=== PATIENT | female | born 1945 | race Caucasian/White ===

== ENCOUNTER 2016-05-22 17:19 | Inpatient (IN) | payer BC, OTHER ==
[~2016-05-22] VITALS: Ht 167.6 cm; Wt 101.6 kg
[~2016-05-22 17:19] MED LIST: ASPIR 8181 M1 PO; BUSPAR30 MG PO; DEXILANT60 MG PO; ENALAPRIL MALEA20 MG PO; GEMFIBROZIL600 MG PO; HUMALOG100 UNIT/2 SC; INVOKANA300 MG PO; JANUVIA100 MG PO; LEVEMIR FL100 UNIT/1 SC; NORCO 5/3251 TABLET PO; PRISTIQ50 MG PO; ZIAC 10/6.251 TABLET PO
[2016-05-22 21:19] LABS: HEMATOCRIT 41.7 % (36.0-46.0); MCH 26.2 PG (29.0-34.0); MCHC 32.9 G/DL (30.0-36.0); MCV 79.7 FL (83-99); MEAN PLAT.VOLUME 9.7 uM^3 (9.5-12.4); PLATELET COUNT 385 K/uL (156-360); RBC DIS.WIDTH-CV 13.2 % (11.8-14.6); RBC DIS.WIDTH-SD 37.2 % (39-53); RED BLOOD COUNT 5.23 M/uL (3.80-5.20); WHITE BLOOD COUNT 12.8 K/uL (4.1-10.2)
[2016-05-22 21:26] LABS: CHLORIDE 100 mEq/L (99-109); POTASSIUM 3.8 mEq/L (3.7-5.4); SODIUM 140 mEq/L (136-147)
[2016-05-22 21:28] LABS: GLUCOSE 202 mg/dL (70-99)
[2016-05-22 21:29] LABS: ANION GAP 13 MEQ/L (2-14)
[2016-05-22 21:31] LABS: GFR ESTIMATE (CALCULATED) > 59 mL/min/
[2016-05-22 21:32] LABS: UREA NITROGEN (BUN) 17 mg/dL (9-23)
[2016-05-22] MEDS ORDERED: GABAPENTIN600 MG PO ×2 (22:26→22:27)
[2016-05-22] MEDS ORDERED: ATARAX,VISTARIL25 MG PO (22:27)
[2016-05-22] MEDS ORDERED: VENLAFAXINE HCL75 M3 PO (22:29)
[2016-05-23 03:32] LABS: HDL CHOLESTEROL 33 MG/DL (Desirable>=50); LDL CHOLESTEROL 80 mg/dL (Desirable<100); NON-HDL CHOLESTEROL 150 mg/dL (Desirable<160); SAMPLE HEMOLYSIS CHECK 0; SAMPLE ICTERIC CHECK 0; SAMPLE LIPEMIA CHECK 0; TOTAL CHOLESTEROL 183 mg/dL (Desirable<200); TRIGLYCERIDES 352 MG/DL (Normal: <150)
[2016-05-23 06:47] LABS: Estimated Average Glucose 189 mg/dL (70-123); HEMOGLOBIN A1c (GLYCOHEMOGLOB) 8.2 % HGB (Below 5.7)
[2016-05-23 07:12] LABS: HEMATOCRIT 39.4 % (36.0-46.0); MCH 26.5 PG (29.0-34.0); MCHC 32.2 G/DL (30.0-36.0); MCV 82.1 FL (83-99); MEAN PLAT.VOLUME 10.3 uM^3 (9.5-12.4); PLATELET COUNT 312 K/uL (156-360); RBC DIS.WIDTH-CV 13.2 % (11.8-14.6); RBC DIS.WIDTH-SD 39.7 % (39-53)
[2016-05-23 07:21] LABS: ALKALINE PHOSPHATASE 92 IU/L (3-129); ANION GAP 10 MEQ/L (2-14); CHLORIDE 100 MEQ/L (99-109); GFR ESTIMATE (CALCULATED) > 59 mL/min/; GLUCOSE 187 mg/dL (70-99); POTASSIUM 3.5 MEQ/L (3.7-5.4); SAMPLE HEMOLYSIS CHECK 0; SAMPLE ICTERIC CHECK 0; SAMPLE LIPEMIA CHECK 0; SODIUM 139 MEQ/L (136-147); TOTAL BILIRUBIN 0.2 MG/DL (0.0-1.0); UREA NITROGEN (BUN) 17 mg/dL (9-23)
[2016-05-23 17:21] VITALS: BP 126/76
[2016-05-23 20:00] VITALS: BP 124/60
[2016-05-23 21:38] LABS: POINT-OF-CARE METER ID UU14188625; POINT-OF-CARE USER ID 603211116
[2016-05-24] VITALS (9 sets, daily range): BP systolic 126–151; BP diastolic 60–84
[2016-05-24 04:53] LABS: POINT-OF-CARE METER ID UU14174225
[2016-05-24 08:28] LABS: POINT-OF-CARE METER ID UU14188625
[2016-05-24 21:39] LABS: POINT-OF-CARE METER ID UU14188625
[2016-05-25 07:38] VITALS: BP 136/65
[2016-05-25 15:04] VITALS: BP 129/66
[2016-05-25 16:13] LABS: POINT-OF-CARE METER ID UU14174225
[2016-05-26 00:02] VITALS: BP 131/69
[2016-05-26 08:19] VITALS: BP 130/63
[2016-05-26] MEDS ORDERED: PLAVIX75 MG PO (11:56)
[2016-05-26] MEDS ORDERED: CLOPIDOGREL75 MG PO (11:56)
[2016-05-26] MEDS ORDERED: ATORVASTATIN CA80 MG PO (11:56)
== END 2016-05-26 14:25 | disposition home health service (06) | DRG 66 ==
LOC: EME 17:19 → EDOF 22:03 → 5SOUTH 22:03
PROVIDERS: Emergency Medicine; Hospitalist; Internal Medicine
DX: I63.9 Cerebral infarction, unspecified (principal); S02.2XXD Fracture of nasal bones, subsequent encounter for fracture with routine healing; W19.XXXD Unspecified fall, subsequent encounter; E87.6 Hypokalemia; I08.1 Rheumatic disorders of both mitral and tricuspid valves; I27.2 Other secondary pulmonary hypertension; E11.65 Type 2 diabetes mellitus with hyperglycemia; E78.5 Hyperlipidemia, unspecified; F32.9 Major depressive disorder, single episode, unspecified; F41.9 Anxiety disorder, unspecified; E66.01 Morbid (severe) obesity due to excess calories; I10 Essential (primary) hypertension; Z68.36 Body mass index [BMI] 36.0-36.9, adult; R53.1 Weakness; R47.81 Slurred speech; E78.00 Pure hypercholesterolemia, unspecified; K21.9 Gastro-esophageal reflux disease without esophagitis; R47.1 Dysarthria and anarthria; H53.2 Diplopia; R26.9 Unspecified abnormalities of gait and mobility
CPT/HCPCS: 70150; 70450; 70551; 73130; 80048; 80053; 80061; 82948; 83036; 85027; 92507 GN; 92523 GN; 92526 GN; 93005; 93306; 93880; 94799; 97532 GN; 99281; 99285; J1644; J2060; J7030; Q0177

== ENCOUNTER 2016-08-23 20:45 | Emergency (ER) | payer BC, OTHER ==
[~2016-08-23] VITALS: Ht 165.1 cm; Wt 103.6 kg
[~2016-08-23 20:45] MED LIST changes: +ATARAX,VISTARIL25 MG PO; +ATORVASTATIN CA80 MG PO; +CLOPIDOGREL75 MG PO; +GABAPENTIN600 MG PO; +PLAVIX75 MG PO; +VENLAFAXINE HCL75 M3 PO
[2016-08-23 23:32] VITALS: BP 117/62
== END 2016-08-23 23:38 | disposition home or self-care (01) ==
LOC: EME 20:45
DX: S09.90XA Unspecified injury of head, initial encounter (principal); I25.2 Old myocardial infarction; W08.XXXA Fall from other furniture, initial encounter; Z86.73 Personal history of transient ischemic attack (TIA), and cerebral infarction without residual deficits
CPT/HCPCS: 70450; 99281; 99283

== ENCOUNTER 2016-12-20 20:36 | Inpatient (IN) | payer OTHER ==
[~2016-12-20] VITALS: Ht 165.1 cm; Wt 102.7 kg
[2016-12-20 22:05] LABS: HEMATOCRIT 46.5 % (36.0-46.0); MCH 25.9 PG (29.0-34.0); MCHC 32.7 G/DL (30.0-36.0); MCV 79.4 FL (83-99); PLATELET COUNT 395 K/uL (156-360); RBC DIS.WIDTH-CV 12.4 % (11.8-14.6); RBC DIS.WIDTH-SD 35.3 % (39-53); RED BLOOD COUNT 5.86 M/uL (3.80-5.20); WHITE BLOOD COUNT 17.6 K/uL (4.1-10.2)
[2016-12-20 22:15] LABS: CHLORIDE 91 mEq/L (99-109); POTASSIUM 4.3 mEq/L (3.7-5.4); SODIUM 133 mEq/L (136-147)
[2016-12-20 22:18] LABS: ANION GAP 22 MEQ/L (2-14)
[2016-12-20 22:19] LABS: TOTAL BILIRUBIN 0.6 mg/dL (0.0-1.0)
[2016-12-20 22:21] LABS: ALKALINE PHOSPHATASE 107 IU/L (3-129); GFR ESTIMATE (CALCULATED) 52 mL/min/
[2016-12-20 22:22] LABS: UREA NITROGEN (BUN) 27 mg/dL (9-23)
[2016-12-20 22:41] LABS: GLUCOSE 519 mg/dL (70-99)
[2016-12-20 23:00] LABS: INTER. NORMALIZED RATIO 1.1; PROTHROMBIN TIME 11.6 SEC (10.2-12.9)
[2016-12-20 23:03] LABS: PTT 31.1 SEC (25-37)
[2016-12-20 23:15] LABS: CARBON DIOXIDE (BICARBONATE) 21.9 MEQ/L (20-31)
[2016-12-20 23:22] LABS: LIPASE 49 U/L (1.0-51.0)
[2016-12-21] VITALS (11 sets, daily range): BP systolic 131–185; BP diastolic 61–91
[2016-12-21 00:29] LABS: TROP-I INTERPRETATION NEGATIVE; TROPONIN-I 0.01 ng/mL (0.0-0.30)
[2016-12-21 02:52] LABS: POINT-OF-CARE METER ID UU13113702; POINT-OF-CARE USER ID 611181311
[2016-12-21 08:02] LABS: CHLORIDE 99 mEq/L (99-109); SODIUM 133 mEq/L (136-147)
[2016-12-21 08:04] LABS: GLUCOSE 324 mg/dL (70-99)
[2016-12-21 08:05] LABS: ANION GAP 19 MEQ/L (2-14)
[2016-12-21 08:07] LABS: GFR ESTIMATE (CALCULATED) > 59 mL/min/
[2016-12-21 08:08] LABS: UREA NITROGEN (BUN) 22 mg/dL (9-23)
[2016-12-21 08:13] LABS: POINT-OF-CARE METER ID UU13113702
[2016-12-21 10:16] LABS: POINT-OF-CARE METER ID UU13113702
[2016-12-21 11:06] LABS: Estimated Average Glucose 292 mg/dL (70-123)
[2016-12-21 11:14] LABS: POINT-OF-CARE METER ID UU13113702
[2016-12-21 11:15] LABS: HEMOGLOBIN A1c (GLYCOHEMOGLOB) 11.8 % HGB (Below 5.7)
[2016-12-21] MEDS ORDERED: LIPITOR80 MG PO (11:34)
[2016-12-21] MEDS ORDERED: VOLTAREN75 MG PO (11:35)
[2016-12-21] MEDS ORDERED: TRAMADOL HCL50 MG PO (11:37)
[2016-12-21] MEDS ORDERED: HYDROCODON-ACE1 EAC7 PO (11:37)
[2016-12-21] MEDS ORDERED: BUPROPION HCL200 M1 PO (11:38)
[2016-12-21] MEDS ORDERED: NORTRIPTYLINE H10 MG PO (11:39)
[2016-12-21] MEDS ORDERED: PREDNISONE20 MG PO (11:43)
[2016-12-21 12:28] LABS: POINT-OF-CARE METER ID UU13113702
[2016-12-21 12:57] LABS: POINT-OF-CARE METER ID UU13113748
[2016-12-21 13:25] LABS: POINT-OF-CARE METER ID UU13113748
[2016-12-21 13:48] LABS: ANION GAP 9 MEQ/L (2-14); CHLORIDE 97 MEQ/L (99-109); GFR ESTIMATE (CALCULATED) > 59 mL/min/; GLUCOSE 239 mg/dL (70-99); POTASSIUM 3.9 MEQ/L (3.7-5.4); SAMPLE HEMOLYSIS CHECK 0; SAMPLE ICTERIC CHECK 0; SAMPLE LIPEMIA CHECK 0; SODIUM 133 MEQ/L (136-147); UREA NITROGEN (BUN) 22 mg/dL (9-23)
[2016-12-21 14:19] LABS: POINT-OF-CARE METER ID UU13113748
[2016-12-21 15:11] LABS: POINT-OF-CARE METER ID UU13113748
[2016-12-21 16:13] LABS: ANION GAP 8 MEQ/L (2-14); CHLORIDE 98 MEQ/L (99-109); POTASSIUM 3.7 MEQ/L (3.7-5.4); SAMPLE HEMOLYSIS CHECK 0; SAMPLE ICTERIC CHECK 0; SAMPLE LIPEMIA CHECK 0; SODIUM 135 MEQ/L (136-147)
[2016-12-21 16:18] LABS: GFR ESTIMATE (CALCULATED) > 59 mL/min/; GLUCOSE 188 mg/dL (70-99); UREA NITROGEN (BUN) 21 mg/dL (9-23)
[2016-12-21 16:26] LABS: POINT-OF-CARE METER ID UU13113748
[2016-12-21 16:36] LABS: ADD MIUA? YES; BILIRUBIN NEGATIVE; BLOOD NEGATIVE; COLOR YELLOW ((YELLOW)); GLUCOSE (STRIP) >=500; KETONES 5; LEUKOCYTES MODERATE; NITRITE NEGATIVE; PROTEIN (STRIP) NEGATIVE; SPECIFIC GRAVITY 1.039 (1.000-1.030); UROBILINOGEN 0.2 MG/DL (0.2-1.0)
[2016-12-21 16:49] LABS: BACTERIA NONE SEEN /HPF; EPITHELIAL CELLS RARE /HPF; HYALINE CASTS 0-5 /LPF; MUCUS TRACE /LPF; RED BLOOD CELLS 20-30 /HPF (0-5); UCUL ADDED? YES; WHITE BLOOD CELLS 30-40 /HPF (0-5); WHITE BLOOD CELLS CLUMP RARE /HPF (0-5)
[2016-12-21 17:26] LABS: POINT-OF-CARE METER ID UU13113748
[2016-12-21 19:01] LABS: POINT-OF-CARE METER ID UU13113748
[2016-12-21 21:37] LABS: POINT-OF-CARE METER ID UU13113748
[2016-12-22] VITALS (12 sets, daily range): BP systolic 115–192; BP diastolic 53–101
[2016-12-22 02:01] LABS: POINT-OF-CARE METER ID UU13113748
[2016-12-22 05:46] LABS: POINT-OF-CARE METER ID UU13113748
[2016-12-22 06:10] LABS: MCH 25.6 PG (29.0-34.0); MCHC 31.7 G/DL (30.0-36.0); MCV 80.8 FL (83-99); MEAN PLAT.VOLUME 9.8 uM^3 (9.5-12.4); PLATELET COUNT 287 K/uL (156-360); RBC DIS.WIDTH-CV 12.6 % (11.8-14.6); RBC DIS.WIDTH-SD 36.8 % (39-53); WHITE BLOOD COUNT 12.9 K/uL (4.1-10.2)
[2016-12-22 06:31] LABS: ALKALINE PHOSPHATASE 86 IU/L (3-129); ANION GAP 10 MEQ/L (2-14); CHLORIDE 99 MEQ/L (99-109); GFR ESTIMATE (CALCULATED) > 59 mL/min/; GLUCOSE 220 mg/dL (70-99); POTASSIUM 3.2 MEQ/L (3.7-5.4); SAMPLE HEMOLYSIS CHECK 0; SAMPLE ICTERIC CHECK 0; SAMPLE LIPEMIA CHECK 0; SODIUM 134 MEQ/L (136-147); TOTAL BILIRUBIN 0.7 MG/DL (0.0-1.0); UREA NITROGEN (BUN) 13 mg/dL (9-23)
[2016-12-22 12:18] LABS: POINT-OF-CARE METER ID UU14162508
[2016-12-22 17:34] LABS: POINT-OF-CARE METER ID UU14162508
[2016-12-22 21:51] LABS: POINT-OF-CARE METER ID UU14208750
[2016-12-23 06:43] LABS: POINT-OF-CARE METER ID UU14208750
[2016-12-23 06:46] LABS: BASOPHIL COUNT 0.1 K/uL (0-0.1); EOSINOPHIL (%) 4.9 % (0-5); EOSINOPHIL COUNT 0.6 K/uL (0-0.3); HEMATOCRIT 36.8 % (36.0-46.0); IMMATURE GRANULOCYTE (%) 3.7 % (0.0-0.7); IMMATURE GRANULOCYTE COUNT 0.4 K/uL; INSTRUMENT ABS NEUTROPHIL CT 6.4 K/uL; LYMPHOCYTE COUNT 3.1 K/uL (1.0-2.8); MCH 25.8 PG (29.0-34.0); MCHC 31.3 G/DL (30.0-36.0); MCV 82.5 FL (83-99); MEAN PLAT.VOLUME 9.8 uM^3 (9.5-12.4); MONOCYTE (%) 9.5 % (3-12); MONOCYTE COUNT 1.1 K/uL (0-0.8); NEUTROPHIL (%) 54.7 % (45-76); NEUTROPHIL COUNT 6.4 K/uL (1.8-6.4); PLATELET COUNT 267 K/uL (156-360); RBC DIS.WIDTH-CV 12.6 % (11.8-14.6); RBC DIS.WIDTH-SD 38.3 % (39-53); RED BLOOD COUNT 4.46 M/uL (3.80-5.20); WHITE BLOOD COUNT 11.7 K/uL (4.1-10.2)
[2016-12-23 07:13] LABS: ANION GAP 7 MEQ/L (2-14); CHLORIDE 99 MEQ/L (99-109); GFR ESTIMATE (CALCULATED) > 59 mL/min/; GLUCOSE 261 mg/dL (70-99); MAGNESIUM 2.1 mg/dl (1.3-2.7); SAMPLE HEMOLYSIS CHECK 0; SAMPLE ICTERIC CHECK 0; SAMPLE LIPEMIA CHECK 0; SODIUM 134 MEQ/L (136-147)
[2016-12-23 07:19] LABS: POTASSIUM 4.2 MEQ/L (3.7-5.4); UREA NITROGEN (BUN) 21 mg/dL (9-23)
[2016-12-23] MEDS ORDERED: KEFLEX250 MG PO (11:37)
[2016-12-23 11:59] LABS: POINT-OF-CARE METER ID UU14162508
[2016-12-23 12:50] VITALS: BP 141/35
== END 2016-12-23 13:40 | disposition home or self-care (01) | DRG 638 ==
LOC: EME 20:36 → 4WEST 12-21 09:31 → 2EAST 12-21 09:31 → EDOF 12-21 09:31 → ENRESERV 12-21 09:33 → CANRESERV 12-21 09:33 → ENRESERV 12-21 09:42 → 4WEST 12-21 12:20 → ENRESERV 12-22 07:05 → 2EAST 12-22 08:17
PROVIDERS: Emergency Medicine; Internal Medicine; Specialist
DX: E13.10 Other specified diabetes mellitus with ketoacidosis without coma (principal); N17.9 Acute kidney failure, unspecified; N39.0 Urinary tract infection, site not specified; E86.1 Hypovolemia; E86.0 Dehydration; E87.6 Hypokalemia; I10 Essential (primary) hypertension; E78.00 Pure hypercholesterolemia, unspecified; K21.9 Gastro-esophageal reflux disease without esophagitis; F32.9 Major depressive disorder, single episode, unspecified; F41.9 Anxiety disorder, unspecified; E66.9 Obesity, unspecified; Z68.37 Body mass index [BMI] 37.0-37.9, adult; Z79.4 Long term (current) use of insulin; Z79.02 Long term (current) use of antithrombotics/antiplatelets; Z86.73 Personal history of transient ischemic attack (TIA), and cerebral infarction without residual deficits
CPT/HCPCS: 71010; 74177; 80048; 80048 91; 80053; 81003; 82010; 82803; 82948; 83036; 83605; 83690; 83735; 84100; 84484; 85025; 85027; 85610; 85730; 87040; 87086; 87641; 93005; 99281; 99284; J0696; J1650; J1815; J2270; J2405; J3010; J7030; J7050; J7120; J7512; Q0177; S0028

== ENCOUNTER 2017-05-03 16:16 | Inpatient (IN) | payer OTHER ==
[~2017-05-03] VITALS: Ht 167.6 cm; Wt 125.4 kg
[~2017-05-03 16:16] MED LIST changes: +BUPROPION HCL200 M1 PO; +HYDROCODON-ACE1 EAC7 PO; +KEFLEX250 MG PO; +LIPITOR80 MG PO; +NORTRIPTYLINE H10 MG PO; +PREDNISONE20 MG PO; +TRAMADOL HCL50 MG PO; +VOLTAREN75 MG PO
[2017-05-03 16:37] LABS: BASOPHIL (%) 0.7 % (0-1); BASOPHIL COUNT 0.1 K/uL (0-0.1); EOSINOPHIL (%) 1.5 % (0-5); EOSINOPHIL COUNT 0.2 K/uL (0-0.3); HEMATOCRIT 42.9 % (36.0-46.0); HEMOGLOBIN 13.5 G/DL (11.9-15.5); IMMATURE GRANULOCYTE (%) 1.4 % (0.0-0.7); LYMPHOCYTE (%) 28.4 % (15-42); LYMPHOCYTE COUNT 2.9 K/uL (1.0-2.8); MCH 25.6 PG (29.0-34.0); MCHC 31.5 G/DL (30.0-36.0); MCV 81.4 FL (83-99); MONOCYTE (%) 7.4 % (3-12); MONOCYTE COUNT 0.8 K/uL (0-0.8); NEUTROPHIL (%) 60.6 % (45-76); NEUTROPHIL COUNT 6.3 K/uL (1.8-6.4); PLATELET COUNT 305 K/uL (156-360); RBC DIS.WIDTH-CV 13.4 % (11.8-14.6); RBC DIS.WIDTH-SD 39.5 % (39-53); RED BLOOD COUNT 5.27 M/uL (3.80-5.20); WHITE BLOOD COUNT 10.4 K/uL (4.1-10.2)
[2017-05-03 16:47] LABS: AMYLASE 27 IU/L (1-118); CHLORIDE 100 mEq/L (99-109); POTASSIUM 4.2 mEq/L (3.7-5.4); SODIUM 139 mEq/L (136-147)
[2017-05-03 16:49] LABS: GLUCOSE 129 mg/dL (70-99)
[2017-05-03 16:52] LABS: SERUM ETHYL ALCOHOL < 10 mg/dL
[2017-05-03 16:53] LABS: CREATININE 0.7 mg/dL (0.6-1.3); GFR ESTIMATE (CALCULATED) > 59 mL/min/
[2017-05-03 16:54] LABS: UREA NITROGEN (BUN) 21 mg/dL (9-23)
[2017-05-03 16:56] LABS: LIPASE 28 U/L (1.0-51.0)
[2017-05-03] MEDS ORDERED: LO-DOSE ASPIRIN81 M1 PO (19:30)
[2017-05-03] MEDS ORDERED: TRESIBA FL200 UNIT/1 SC (19:33)
[2017-05-03] MEDS ORDERED: TRULICITY1.5 MG/0.5 SC (19:34)
[2017-05-03] MEDS ORDERED: VALIUM2 MG PO (19:38)
[2017-05-04 04:52] VITALS: BP 162/79
[2017-05-04 05:34] LABS: HEMATOCRIT 40.7 % (36.0-46.0); MCH 25.8 PG (29.0-34.0); MCHC 31.9 G/DL (30.0-36.0); MCV 80.9 FL (83-99); PLATELET COUNT 266 K/uL (156-360); RBC DIS.WIDTH-CV 13.7 % (11.8-14.6); RBC DIS.WIDTH-SD 40.1 % (39-53); RED BLOOD COUNT 5.03 M/uL (3.80-5.20); WHITE BLOOD COUNT 11.2 K/uL (4.1-10.2)
[2017-05-04 05:57] LABS: CHLORIDE 99 MEQ/L (99-109); CREATININE 0.7 MG/DL (0.6-1.3); GFR ESTIMATE (CALCULATED) > 59 mL/min/; POTASSIUM 4.2 MEQ/L (3.7-5.4); SODIUM 137 MEQ/L (136-147); UREA NITROGEN (BUN) 20 mg/dL (9-23)
[2017-05-04 06:00] LABS: GLUCOSE 66 mg/dL (70-99)
[2017-05-04 08:05] VITALS: BP 138/90
[2017-05-04 11:39] VITALS: BP 110/55
[2017-05-04 12:41] LABS: TROP-I INTERPRETATION NEGATIVE; TROPONIN-I < 0.01 ng/mL (0.0-0.30)
[2017-05-04 21:19] LABS: TROP-I INTERPRETATION NEGATIVE; TROPONIN-I < 0.01 ng/mL (0.0-0.30)
[2017-05-04 21:56] VITALS: BP 104/66
[2017-05-04 23:27] VITALS: BP 137/81
[2017-05-05 03:01] VITALS: BP 121/62
[2017-05-05 07:02] LABS: HEMATOCRIT 39.1 % (36.0-46.0); HEMOGLOBIN 11.8 G/DL (11.9-15.5)
[2017-05-05 07:04] LABS: MCV 85.4 FL (83-99)
[2017-05-05 07:30] VITALS: BP 102/55
[2017-05-05 12:10] VITALS: BP 131/64
[2017-05-05 16:07] VITALS: BP 128/56
[2017-05-05 23:48] VITALS: BP 129/62
[2017-05-06 03:38] VITALS: BP 115/56
[2017-05-06 07:36] LABS: HEMOGLOBIN 10.4 G/DL (11.9-15.5); MCH 25.8 PG (29.0-34.0); MCHC 30.6 G/DL (30.0-36.0); MCV 84.4 FL (83-99); PLATELET COUNT 198 K/uL (156-360); RBC DIS.WIDTH-CV 13.6 % (11.8-14.6); RBC DIS.WIDTH-SD 42.2 % (39-53); RED BLOOD COUNT 4.03 M/uL (3.80-5.20); WHITE BLOOD COUNT 8.7 K/uL (4.1-10.2)
[2017-05-06 07:40] VITALS: BP 108/53
[2017-05-06 08:01] LABS: CHLORIDE 98 MEQ/L (99-109); GFR ESTIMATE (CALCULATED) 47 mL/min/; POTASSIUM 4.1 MEQ/L (3.7-5.4); SODIUM 133 MEQ/L (136-147)
[2017-05-06 08:02] LABS: CREATININE 1.2 MG/DL (0.6-1.3); GLUCOSE 178 mg/dL (70-99); UREA NITROGEN (BUN) 36 mg/dL (9-23)
[2017-05-06 08:27] LABS: APPEARANCE CLEAR ((CLEAR)); BILIRUBIN NEGATIVE; BLOOD MODERATE; COLOR YELLOW ((YELLOW)); GLUCOSE (STRIP) NEGATIVE; KETONES NEGATIVE; LEUKOCYTES NEGATIVE; NITRITE NEGATIVE; PROTEIN (STRIP) NEGATIVE; SPECIFIC GRAVITY 1.018 (1.000-1.030); UROBILINOGEN 0.2 MG/DL (0.2-1.0)
[2017-05-06 08:41] LABS: BACTERIA RARE /HPF; EPITHELIAL CELLS RARE /HPF; MUCUS TRACE /LPF; RED BLOOD CELLS TNTC /HPF (0-5); WHITE BLOOD CELLS 0-5 /HPF (0-5)
[2017-05-06 15:47] VITALS: BP 107/61
[2017-05-06 20:02] VITALS: BP 111/55
[2017-05-07] VITALS (8 sets, daily range): BP systolic 116–153; BP diastolic 53–67
[2017-05-07 05:36] LABS: HEMATOCRIT 29.5 % (36.0-46.0); HEMOGLOBIN 9.2 G/DL (11.9-15.5); MCH 25.6 PG (29.0-34.0); MCHC 31.2 G/DL (30.0-36.0); MCV 82.2 FL (83-99); PLATELET COUNT 203 K/uL (156-360); RBC DIS.WIDTH-CV 13.4 % (11.8-14.6); RBC DIS.WIDTH-SD 40.4 % (39-53); RED BLOOD COUNT 3.59 M/uL (3.80-5.20); WHITE BLOOD COUNT 5.4 K/uL (4.1-10.2)
[2017-05-07 06:08] LABS: CHLORIDE 104 MEQ/L (99-109); CREATININE 0.8 MG/DL (0.6-1.3); GFR ESTIMATE (CALCULATED) > 59 mL/min/; GLUCOSE 152 mg/dL (70-99); POTASSIUM 3.9 MEQ/L (3.7-5.4); SODIUM 138 MEQ/L (136-147); UREA NITROGEN (BUN) 26 mg/dL (9-23)
[2017-05-07 15:32] LABS: HEMOGLOBIN A1c (GLYCOHEMOGLOB) 10.3 % (Below 5.7)
[2017-05-08 04:36] VITALS: BP 162/74
[2017-05-08 06:28] LABS: IMM.RETIC FRACTION 17.7 % (3-19); RETIC HGB EQUIVALENT 29.6 (28-36); RETICULOCYTE COUNT 2.1 % (0.5-1.8)
[2017-05-08 06:42] LABS: ALBUMIN 2.8 G/DL (3.2-4.8); ALKALINE PHOSPHATASE 99 IU/L (3-129); ALT (GPT) 5 IU/L (3-49); AST (GOT) 10 IU/L (2-34); CHLORIDE 103 MEQ/L (99-109); CREATININE 0.8 MG/DL (0.6-1.3); GFR ESTIMATE (CALCULATED) > 59 mL/min/; GLUCOSE 118 mg/dL (70-99); POTASSIUM 3.8 MEQ/L (3.7-5.4); SODIUM 139 MEQ/L (136-147); TOTAL BILIRUBIN 0.4 MG/DL (0.0-1.0); TOTAL PROTEIN 5.6 G/DL (6.4-8.3); UREA NITROGEN (BUN) 21 mg/dL (9-23)
[2017-05-08 06:49] LABS: HEMATOCRIT 30.1 % (36.0-46.0); HEMOGLOBIN 9.2 G/DL (11.9-15.5); MCH 25.5 PG (29.0-34.0); MCHC 30.6 G/DL (30.0-36.0); MCV 83.4 FL (83-99); NRBC (%) 0.4 /100 WBC (0-0); RBC DIS.WIDTH-CV 13.9 % (11.8-14.6); RBC DIS.WIDTH-SD 42.4 % (39-53); RED BLOOD COUNT 3.61 M/uL (3.80-5.20); WHITE BLOOD COUNT 6.9 K/uL (4.1-10.2)
[2017-05-08 07:41] LABS: ABS NEUTROPHIL COUNT 4.5; ANISOCYTOSIS 2+; ATYPICAL LYMPHOCYTE 0.9 %; BAND NEUTROPHILS 36.4 % (0-8.0); EOSINOPHIL ABS CT 0; LYMPHOCYTES 25.4 % (15.0-45.0); MICROCYTOSIS 2+; MONOCYTES 8.2 % (0-9.0); PLAT.SUFFICIENCY ADEQUATE; PLATELET COUNT 251 K/uL (156-360); POLYCHROMASIA 1+; SEG.NEUTROPHILS 29.1 % (46.0-76.0)
[2017-05-08 08:17] VITALS: BP 116/56
[2017-05-08 08:23] LABS: FOLIC ACID (FOLATE) 13.3 NG/ML (5.0-22.0)
[2017-05-08 08:29] LABS: IRON 10 MCG/DL (35-150); TRANSFERRIN (TIBC) 198.4 mg/dL (215-380); TRANSFERRIN SATUR. 5 % (20-55)
[2017-05-08 09:13] LABS: FERRITIN 212 NG/ML (10-291)
[2017-05-08 11:41] VITALS: BP 155/66
[2017-05-08 16:14] VITALS: BP 106/56
[2017-05-08 21:17] VITALS: BP 151/69
[2017-05-09] VITALS (7 sets, daily range): BP systolic 118–177; BP diastolic 65–97
[2017-05-09 09:09] LABS: HEMATOCRIT 30.6 % (36.0-46.0); HEMOGLOBIN 9.3 G/DL (11.9-15.5); MCH 25.5 PG (29.0-34.0); MCHC 30.4 G/DL (30.0-36.0); MCV 84.1 FL (83-99); PLATELET COUNT 287 K/uL (156-360); RED BLOOD COUNT 3.64 M/uL (3.80-5.20); WHITE BLOOD COUNT 6.4 K/uL (4.1-10.2)
[2017-05-09 09:39] LABS: CHLORIDE 102 mEq/L (99-109); POTASSIUM 3.8 mEq/L (3.7-5.4); SODIUM 142 mEq/L (136-147)
[2017-05-09 09:42] LABS: GLUCOSE 178 mg/dL (70-99)
[2017-05-09 09:44] LABS: CREATININE 0.8 mg/dL (0.6-1.3); GFR ESTIMATE (CALCULATED) > 59 mL/min/
[2017-05-09 09:45] LABS: UREA NITROGEN (BUN) 15 mg/dL (9-23)
[2017-05-10 05:17] LABS: HEMATOCRIT 29.6 % (36.0-46.0); HEMOGLOBIN 9.3 G/DL (11.9-15.5); MCHC 31.4 G/DL (30.0-36.0); MCV 82.7 FL (83-99); PLATELET COUNT 301 K/uL (156-360); RBC DIS.WIDTH-SD 42.2 % (39-53); RED BLOOD COUNT 3.58 M/uL (3.80-5.20); WHITE BLOOD COUNT 7.4 K/uL (4.1-10.2)
[2017-05-10 05:51] LABS: ALBUMIN 2.9 G/DL (3.2-4.8); ALKALINE PHOSPHATASE 106 IU/L (3-129); ALT (GPT) 7 IU/L (3-49); AST (GOT) 10 IU/L (2-34); CHLORIDE 103 MEQ/L (99-109); CREATININE 0.7 MG/DL (0.6-1.3); GFR ESTIMATE (CALCULATED) > 59 mL/min/; GLUCOSE 132 mg/dL (70-99); SODIUM 142 MEQ/L (136-147); TOTAL BILIRUBIN 0.4 MG/DL (0.0-1.0); TOTAL PROTEIN 5.2 G/DL (6.4-8.3); UREA NITROGEN (BUN) 13 mg/dL (9-23)
[2017-05-10 05:56] LABS: ABS NEUTROPHIL COUNT 4.1; ANISOCYTOSIS 1+; ATYPICAL LYMPHOCYTE 1.7 %; BASOPHILS 0.9 %; EOSINOPHIL ABS CT 0.3; EOSINOPHILS 4.3 % (0-5.0); LYMPHOCYTES 28.7 % (15.0-45.0); METAMYELOCYTES 2.6 %; MICROCYTOSIS 1+; PLAT.SUFFICIENCY ADEQUATE; POLYCHROMASIA 1+; SMUDGE CELLS 1.7
[2017-05-10 05:57] LABS: SEG.NEUTROPHILS 54.8 % (46.0-76.0)
[2017-05-10] MEDS ORDERED: FERROUS SULFAT325 MG PO (08:15)
[2017-05-10] MEDS ORDERED: NOVOLOG 10100 UNITS/ SC (08:17)
[2017-05-10] MEDS ORDERED: DOCUSATE SODIU100 MG PO (08:17)
[2017-05-10] MEDS ORDERED: LEVEMIR100 UNIT/2 SC (08:18)
[2017-05-10] MEDS ORDERED: Vitamin B-12 SL (08:18)
[2017-05-10 08:54] VITALS: BP 168/72
[2017-05-10] MEDS ORDERED: TRAMADOL HCL50 MG PO (11:29)
== END 2017-05-10 11:31 | DRG 493 ==
LOC: EME 16:16 → TRA 16:16 → 3EAST 20:38 → EDOF 20:38 → ENRESERV 20:47 → 3EAST 22:45
PROVIDERS: Emergency Medicine; Family Medicine; Hospitalist; Orthopaedic Surgery
PROC: 0PSF04Z Reposition Right Humeral Shaft with Internal Fixation Device, Open Approach (ICD-10-PCS; principal; 2017-05-03)
DX: S42.291A Other displaced fracture of upper end of right humerus, initial encounter for closed fracture (principal); Z68.41 Body mass index [BMI] 40.0-44.9, adult; W01.0XXA Fall on same level from slipping, tripping and stumbling without subsequent striking against object, initial encounter; E66.01 Morbid (severe) obesity due to excess calories; I11.9 Hypertensive heart disease without heart failure; I27.20 Pulmonary hypertension, unspecified; I25.2 Old myocardial infarction; K21.9 Gastro-esophageal reflux disease without esophagitis; Z86.73 Personal history of transient ischemic attack (TIA), and cerebral infarction without residual deficits; E78.5 Hyperlipidemia, unspecified; E78.00 Pure hypercholesterolemia, unspecified; I25.10 Atherosclerotic heart disease of native coronary artery without angina pectoris; F41.8 Other specified anxiety disorders; E11.649 Type 2 diabetes mellitus with hypoglycemia without coma; R33.9 Retention of urine, unspecified; Z79.4 Long term (current) use of insulin; R29.6 Repeated falls; D64.9 Anemia, unspecified
CPT/HCPCS: 70450; 71045; 72125; 73030; 73060; 76000; 80048; 80053; 81003; 82150; 82607; 82728; 82746; 82948; 83036; 83540; 83690; 84466; 84484; 85014; 85018; 85025; 85027; 85046; 86850; 86900; 86901; 93005; 93880; 94799; 97530 GO; 97530 GP; 99281; 99285; C1713; G0480; J0131; J0690; J1170; J1644; J1815; J1885; J2250; J2270; J2370; J2405; J2765; J3010; J7030; J7042; J7120; Q0177